=== PATIENT | female | born 1940 | race Caucasian/White ===

== ENCOUNTER → 2017-03-11 | Outpatient (CLI) | payer OTHER ==
[~2017-03-11] MED LIST: ANAS1TAB19 PO; ASPI81TA28 PO; CALC8.5C PO; LISI5TAB PO; MULT-506 PO; VITA400C15 PO; ZOLE5INJ INJ; Zinc PO
== END | disposition home or self-care (01) ==
LOC: C.MAMM 13:55
PROVIDERS: ATTEND Internal Medicine Hematology & Oncology
DX: C50.911 Malignant neoplasm of unspecified site of right female breast (principal); M85.852 Other specified disorders of bone density and structure, left thigh

== ENCOUNTER → 2018-03-13 | Outpatient (CLI) | payer OTHER ==
[~2018-03-13] MED LIST changes: -ANAS1TAB19 PO; +ANAS1TAB59 PO
--- NOTE | 2018-03-13 15:40 | MAMMOGRAPHY REPORT ---
BILATERAL DIGITAL DIAGNOSTIC MAMMOGRAM TOMOSYNTHESIS WITH CAD: 03/13/2018 CLINICAL HISTORY: Personal history of breast cancer. Asymptomatic. TECHNIQUE: The study was acquired using full field digital technology and interpreted from soft copy. Breast tomosynthesis in addition to standard 2D mammography was performed. Current study was also ev aluated with a Computer Aided Detection (CAD) system. Bilateral CC and MLO 2D and tomosynthesis imag es were obtained. COMPARISON: Comparison is made to exams dated: 01/24/2016 mammogram, 02/19/2017 mammogram, 01/18/2015 mamm ogram, 07/28/2014 mammogram, 08/06/2013 mammogram, and 01/18/2013 mammogram. BREAST COMPOSITION: The tissue of both breasts is heterogeneously dense, which may obscure small mass es. FINDINGS: No suspicious masses, calcifications, or areas of architectural distortion are noted in either breast . There has been no significant interval change compared to prior exams. There are stable postsurgic al changes in the left upper outer quadrant posteriorly from prior lumpectomy, including stable archi tectural distortion and surgical clips at the lumpectomy bed. A linear scar marker overlies the left upper outer breast. The remainder of both breasts are stable compared to prior exams, without suspicious masses, calcific ations, or areas of architectural distortion noted. Scattered bilateral benign-appearing calcificati ons are not significantly changed. IMPRESSION: ACR BI-RADS CATEGORY 2: BENIGN There is no mammographic evidence of malignancy in either breast. A 1 year screening mammogram is rec ommended.(03/14/2019) The patient has been verbally notified of the results. Some breast cancers are not detected with mammography. A negative mammographic report should not kimo y biopsy if a clinically suggestive mass is present. Janell Lamb M.D. ah/:03/13/2018 11:51:59 Muck Operator: RT Christopher(Brian)(M), [facility] letter sent: Normal 1/2 BI-RADS Code: ACR BI-RADS Category 2: Benign
== END | disposition home or self-care (01) ==
LOC: C.MAMM 11:12
PROVIDERS: ATTEND Internal Medicine Hematology & Oncology
DX: Z12.31 Encounter for screening mammogram for malignant neoplasm of breast (principal); Z85.3 Personal history of malignant neoplasm of breast